=== PATIENT | female | born 1995 | race Caucasian/White ===

== ENCOUNTER 2020-08-05 15:00 | Outpatient (CLI) | payer OTHER ==
[2020-08-05 15:39] LABS: Glucose,Whole Blood 100 mg/dL (75-99)
[2020-08-05 16:16] VITALS: BP 129/76; PULSE 129; RESP 18; TEMP 97.7
--- NOTE | 2020-08-17 07:48 | P.MSEPDOC ---
Presenting Problems - Arrival Data Date of Arrival on Unit: 08/05/20 Time of Arrival on Unit: 14:15 Mode of Transport: Ambulatory - Complaint OB-Reason for Admission/Chief Complaint: Dizziness Comment: cramping, lightheaded, hot, on macrobid for UTI with neg culture Medical History - Information : 1 Para: 0 Term: 0 : 0 Abortions: Spontaneous or Elective: 0 Number of Living Children: 0 - Gestational Age Gestational Age by ANDREW (wks/days): 34 Weeks and 5 Days Review of Systems - Review of Systems Constitutional: No problems Breast: No problems ENT: No problems Cardiovascular: No problems Respiratory: No problems Gastrointestinal: No problems Genitourinary: No problems Musculoskeletal: No problems Neurological: No problems Skin: No problems Vital Signs - Temperature Temperature: 97.7 F Temperature Source: Temporal Artery Scan - Pulse Right Sitting Brachial Pulse Rate: 129 Pulse Assessment Method: Automatic Cuff - Respirations Respiratory Rate: 18 Oxygen Delivery Method: Room Air O2 Sat by Pulse Oximetry: 97 - Blood Pressure Right Arm Sitting Blood Pressure: 129/76 Blood Pressure Mean: 93 Blood Pressure Source: Automatic Cuff Medical Screen Scoring (Pre) - Cervical Exam Dilation: Exam Deferred Effacement: Exam Deferred - Uterine Contractions Frequency: N/A Duration: N/A Intensity: N/A - Maternal Vital Signs Maternal Temperature: N/A Maternal Blood Pressure: N/A Signs of Preeclampsia: N/A Maternal Respirations: N/A - Maternal Trauma Maternal Trauma: N/A - Assessment - Baby A Baseline FHR: 125 Heart Rate - NICHD Category: Category I (Normal) = 0 NST: Reactive Position: N/A Station: N/A - Total Score - Baby A Total Score - Baby A: 0 - Total Score - Baby B Total Score - Baby B: 0 - Total Score - Baby C Total Score - Baby C: 0 - Level of Risk - Baby A Level of Risk - Baby A: Low (0-5) - Level of Risk - Baby B Level of Risk - Baby B: Low (0-5) - Level of Risk - Baby C Level of Risk - Baby C: Low (0-5) Physician Notification (Pre) - Physician Notified Physician Notified Date: 08/05/20 Physician Notified Time: 16:00 New Order Received: Yes - Notification Comment Comment: ok to dc home, rest and increase po fluids. Pt to call for appt tomorrow with Dr Ojeda if symptoms persist. Disposition - Disposition OB Disposition: Physician follow up in office, Discharge to home Discharge Date: 08/05/20 Discharge Time: 16:04 I agree with the RN Medical Screening Exam: Yes Case reviewed; plan agreed upon as documented in EMR&OBIX.: Yes Comments: Patient was neither seen nor examined by me Diagnosis: FALSE LABOR BEFORE 37 COMPLETED WEEKS OF GEST, THIRD TRI
== END 2020-08-05 16:07 | disposition home or self-care (01) ==
LOC: FBPOP 15:00
PROVIDERS: ATTEND Obstetrics & Gynecology
DX: O47.03 False labor before 37 completed weeks of gestation, third trimester (principal); Z3A.34 34 weeks gestation of pregnancy
CPT/HCPCS: 59025; G0463; 99213

== ENCOUNTER 2020-08-09 06:30 | Outpatient (CLI) | payer OTHER ==
[2020-08-09 07:34] VITALS: BP 121/79; PULSE 93; RESP 16; TEMP 97.9
--- NOTE | 2020-08-17 07:51 | P.MSEPDOC ---
Presenting Problems - Arrival Data Date of Arrival on Unit: 08/09/20 Time of Arrival on Unit: 06:30 Mode of Transport: Ambulatory - Complaint OB-Reason for Admission/Chief Complaint: Decreased Movement Medical History - Information : 1 Para: 0 Term: 0 : 0 Abortions: Spontaneous or Elective: 0 Number of Living Children: 0 - Gestational Age Gestational Age by ANDREW (wks/days): 35 Weeks and 2 Days Review of Systems - Review of Systems Constitutional: No problems Breast: No problems ENT: No problems Cardiovascular: No problems Respiratory: No problems Gastrointestinal: No problems Genitourinary: No problems Musculoskeletal: No problems Neurological: No problems Skin: No problems Vital Signs - Temperature Temperature: 97.9 F Temperature Source: Oral - Pulse Pulse Oximetery Pulse Rate: 93 Pulse Assessment Method: Pulse Oximetry - Respirations Respiratory Rate: 16 Oxygen Delivery Method: Room Air O2 Sat by Pulse Oximetry: 100 - Blood Pressure Right Arm Blood Pressure: 121/79 Blood Pressure Mean: 93 Blood Pressure Source: Automatic Cuff Medical Screen Scoring (Pre) - Cervical Exam Dilation: Exam Deferred Effacement: Exam Deferred Membranes: Intact - Uterine Contractions Frequency: N/A Duration: N/A Intensity: N/A - Maternal Vital Signs Maternal Temperature: N/A Maternal Blood Pressure: N/A Signs of Preeclampsia: N/A Maternal Respirations: N/A - Maternal Trauma Maternal Trauma: N/A - Assessment - Baby A Baseline FHR: 135 Heart Rate - NICHD Category: Category I (Normal) = 0 NST: Reactive Position: N/A Station: N/A - Total Score - Baby A Total Score - Baby A: 0 - Total Score - Baby B Total Score - Baby B: 0 - Total Score - Baby C Total Score - Baby C: 0 - Level of Risk - Baby A Level of Risk - Baby A: Low (0-5) - Level of Risk - Baby B Level of Risk - Baby B: Low (0-5) - Level of Risk - Baby C Level of Risk - Baby C: Low (0-5) Physician Notification (Pre) - Physician Notified Physician Notified Date: 08/09/20 Physician Notified Time: 07:27 New Order Received: Yes - Notification Comment Comment: Report given to Dr. Ojeda on pt and status, reactive NST, pt feeling. movement now. Pt has an appointment tomorrow with dr. ojeda. Orders to discharge. pt home. Medical Screen Scoring (Post) - Cervical Exam Dilation: Exam Deferred Effacement: Exam Deferred Membranes: Intact - Uterine Contractions Frequency: N/A Duration: N/A Intensity: N/A - Maternal Vital Signs Maternal Temperature: N/A Maternal Blood Pressure: N/A Signs of Preeclampsia: N/A Maternal Respirations: N/A - Pain Assessment Pain Location and Character: Generalized Pain Scale Used: Numeric (1 - 10) Pain Intensity: 0 Pain Management Goal: 0 Pain Behavior: None Exhibited, Vocalization - Maternal Trauma Maternal Trauma: N/A - Assessment - Baby A Heart Rate: 130 Heart Rate - NICHD Category: Category I (Normal) = 0 NST: Reactive Position: N/A Station: N/A - Total Score Total Score - Baby A: 0 Total Score - Baby B: 0 Total Score - Baby C: 0 - Post Treatment Level of Risk Post Treatment Level of Risk - Baby A: Low (0-5) Post Treatment Level of Risk - Baby B: Low (0-5) Post Treatment Level of Risk - Baby C: Low (0-5) Physician Notification (Post) - Physician Notified Physician Notified Date: 08/09/20 Physician Notified Time: 07:24 Physician/Practitioner Notified:: Lynette Spoke With: Lynette New Order Received: (home) Disposition - Disposition OB Disposition: Physician follow up in office, Discharge to home Discharge Date: 08/09/20 Discharge Time: 07:33 I agree with the RN Medical Screening Exam: Yes Case reviewed; plan agreed upon as documented in EMR&OBIX.: Yes Comments: Patient is neither seen nor examined by me Diagnosis: DECREASED MOVEMENTS, THIRD TRIMESTER, FETUS 1
== END 2020-08-09 07:26 | disposition home or self-care (01) ==
LOC: FBPOP 06:30
PROVIDERS: ATTEND Obstetrics & Gynecology
DX: O36.8131 Decreased fetal movements, third trimester, fetus 1 (principal); Z3A.35 35 weeks gestation of pregnancy
CPT/HCPCS: 59025; 99213

== ENCOUNTER 2020-09-09 20:55 | Outpatient (CLI) | payer OTHER ==
[2020-09-09 21:31] LABS: Glucose,Whole Blood 78 mg/dL (75-99)
[2020-09-09 22:27] VITALS: BP 147/95; PULSE 97; RESP 16; TEMP 97.6
--- NOTE | 2020-09-15 09:46 | P.MSEPDOC ---
Presenting Problems - Arrival Data Date of Arrival on Unit: 09/09/20 Time of Arrival on Unit: 21:00 Mode of Transport: Ambulatory - Complaint OB-Reason for Admission/Chief Complaint: Dizziness, Other Comment: Patient presents to triage stating she had elevated blood pressure at home and has been feeling an increase in dizziness. Medical History - Information : 1 Para: 0 Term: 0 : 0 Abortions: Spontaneous or Elective: 0 Number of Living Children: 0 - Gestational Age Gestational Age by ANDREW (wks/days): 39 Weeks and 5 Days Review of Systems - Review of Systems Constitutional: No problems Breast: No problems ENT: No problems Cardiovascular: No problems Respiratory: No problems Gastrointestinal: No problems Genitourinary: No problems Musculoskeletal: No problems Neurological: No problems Skin: No problems Vital Signs - Temperature Temperature: 97.6 F Temperature Source: Temporal Artery Scan - Pulse Left Brachial Pulse Rate: 97 Pulse Assessment Method: Automatic Cuff - Respirations Respiratory Rate: 16 Oxygen Delivery Method: Room Air - Blood Pressure Left Arm Blood Pressure: 147/95 Blood Pressure Mean: 112 Blood Pressure Source: Automatic Cuff Medical Screen Scoring - Cervical Exam Dilation (cm): 1 Effacement (%): 50 Station: -3 Membranes: Intact - Uterine Contractions Frequency From (mins): 0 Frequency To (mins): 0 Duration From (seconds): 0 Duration To (seconds): 0 Intensity: Absent Resting: Soft to palpation - Assessment - Baby A Baseline FHR: 145 Heart Rate - NICHD Category: Category I (Normal) NST: Reactive Physician Notification - Physician Notified Physician Notified Date: 09/09/20 Physician Notified Time: 22:25 Physician: Dr. Ojeda New Order Received: Yes - Notification Comment Comment: Discharge home if blood pressures remain within normal limits. Maternal Triage Index - Maternal Triage Index Presenting for scheduled procedure w/no complaint: No - Stat/Priority 1 Stat Priority 1: No - Urgent/Priority 2 Urgent Priority 2: No - Prompt/Priority 3 Prompt Priority 3: Yes Criteria Met for Priority 3: Dr. Ojeda notified at 0650. priority 3 related to blood pressures. Disposition - Disposition OB Disposition: Discharge to home Discharge Date: 09/09/20 Discharge Time: 22:00 I agree with the RN Medical Screening Exam: Yes Case reviewed; plan agreed upon as documented in EMR&OBIX.: Yes Comments: Patient was neither seen nor examined by me. Diagnosis: RELATED CONDITIONS, UNSPECIFIED, THIRD TRIMESTER
== END 2020-09-09 22:00 ==
LOC: FBPOP 20:55
PROVIDERS: ATTEND Obstetrics & Gynecology
DX: O26.893 Other specified pregnancy related conditions, third trimester (principal); R42 Dizziness and giddiness; Z3A.39 39 weeks gestation of pregnancy
CPT/HCPCS: 59025; 99213

== ENCOUNTER 2020-09-17 | Inpatient (IN) | payer OTHER | END 2020-09-21 13:30 | disposition home or self-care (01) | DRG 788 | PROVIDERS: ADMIT Obstetrics & Gynecology Obstetrics | PROC: 10D00Z1 Extraction of Products of Conception, Low, Open Approach (ICD-10-PCS; principal; 2020-09-17) | DX: O14.04 Mild to moderate pre-eclampsia, complicating childbirth (principal); O15.1 Eclampsia complicating labor; F41.9 Anxiety disorder, unspecified; O48.0 Post-term pregnancy; Z37.0 Single live birth; Z3A.40 40 weeks gestation of pregnancy; Z91.410 Personal history of adult physical and sexual abuse | CPT/HCPCS: 81001; 82565; 82570; 83615; 83735; 84156; 84450; 84460; 84520; 84550; 85025; 85384; 85610; 85730; 86850; 86900; 86901; 88307; 90471; 90707 ==

== ENCOUNTER 2020-09-23 16:13 | Observation (INO) | payer OTHER ==
[2020-09-23] MEDS ORDERED: hydrALAZINE HCL 20 MG/ML 1 ML VIAL IVP PRN ×2 (16:33)
[2020-09-23 16:57] LABS: Basophils # (A) 0.1 k/uL (0-0.2); Basophils % (A) 1 %; Eosinophils # (A) 0.3 k/uL (0-0.7); Eosinophils % (A) 3 %; HCT 31.9 % (34.0-46.0); HGB 10.8 gm/dL (11.4-16.0); Lymphocytes # (A) 1.5 k/uL (1.0-4.8); Lymphocytes % (A) 18 %; MCH 27.4 pg (25.0-35.0); MCHC 33.9 g/dL (31.0-37.0); Mean Platelet Volume 7.9; Monocytes # (A) 0.5 k/uL (0-1.0); Monocytes % (A) 5 %; Neutrophils # (A) 6.3 k/uL (1.3-7.7); Neutrophils % (A) 72 %; Platelet Count 246 k/uL (150-450); RBC 3.94 m/uL (3.80-5.40); RDW 14.1 % (11.5-15.5); WBC 8.7 k/uL (3.8-10.6)
[2020-09-23 17:04] LABS: Uric Acid 5.6 mg/dL (3.7-7.4)
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
[2020-09-23] MEDS ORDERED: LACTATED RINGERS 1,000 ML IV SCH (18:00)
[2020-09-23 18:13] VITALS: RESP 16
[2020-09-23] MEDS: IBUPROFEN 600 MG TAB PO SCH ×2 (18:37→23:19)
[2020-09-23] MEDS: ACETAMINOPHEN TAB 500 MG TAB PO PRN (20:15)
[2020-09-23] MEDS ORDERED: NIFEdipine XL 30 MG TAB.ER.24 PO STA ×2 (20:45→23:20)
[2020-09-23] MEDS ORDERED: FUROSEMIDE 10 MG/ML 4 ML VIAL IV STA (20:45)
[2020-09-23] MEDS: LABETALOL 100 MG TAB PO SCH (21:09)
--- NOTE | 2020-09-23 23:54 | P.CONS ---
History of Present Illness - Reason for Consult Consult date: 09/23/20 hypertension Requesting physician: Charmaine Ojeda - Chief Complaint elevated blood pressure - History of Present Illness 24 year old female with no significant past medical history patient is 6 days post op. when she was discovered to have elevated blood press ure around delivery, she did not have any seizures at the time ,blood pressure was controlled and discharged however, she was monitoring her blood pressure at home, and decided to come back when she noticed that her BP is poorly controlled, she reports some mild headache, and heavy breathing but denies any focal neuro deficits, nausea , vomiting, abd pain , chest pain , blurry vision. she does have moderate pedal edema she is currently on labetalol which has been adjusted, and IV hydralazine has been given as her systolic blood pressure was around 190 Review of Systems Pertinent positives as noted in HPI. All other systems were reviewed and are negative Past Medical History Past Medical History: Asthma History of Any Multi-Drug Resistant Organisms: None Reported Past Surgical History: Appendectomy Past Anesthesia/Blood Transfusion Reactions: No Reported Reaction Smoking Status: Never smoker - Past Family History Father Family Medical History: No Reported History Medications and Allergies Home Medications Medication Instructions Recorded Confirmed Type Labetalol [Trandate] 200 mg PO TID 09/23/20 09/23/20 History Allergies Allergy/AdvReac Type Severity Reaction Status Date / Time No Known Allergies Allergy Verified 09/23/20 16:28 Physical Exam Vitals: Vital Signs Temp Pulse Resp BP 09/23/20 18:45 156/87 09/23/20 18:01 97.3 F L 72 16 190/101 09/23/20 17:18 90 159/84 09/23/20 17:03 62 166/93 09/23/20 16:56 164/87 09/23/20 16:45 185/98 09/23/20 16:18 190/101 Intake and Output 09/23/20 09/23/20 09/23/20 06:59 14:59 22:59 Other: Weight 93.44 kg Constitutional: No acute distress, conversant, pleasant Eyes: Anicteric sclerae, moist conjunctiva, Pupils equal round reactive to light ENMT: NC/AT Oropharynx clear, no erythema, or exudates Neck: Supple, FROM, no masses, or JVD No carotid bruits No thyromegaly Lungs: Clear to auscultation Clear to percussion Normal respiratory effort, no accessory muscle use Cardiovascular: Heart regular in rate and rhythm, No murmurs, gallops, or rubs bilateral pedal edema Abdominal: Soft, surgical wound clean dry and intact no surrounding erythema or induration Nontender, no guarding, rebound or rigidity Abdomen moving with respiration Normoactive bowel sounds No hepatomegaly, No splenomegaly No palpable mass No abdominal wall hernia noted Skin: Normal temperature, tone, texture, turgor No induration No subcutaneous nodules No rash, lesions No ulcers Extremities: No digital cyanosis No clubbing Pedal edema bilaterally, capillary refill immediate Radial pulses intact and symmetrical No calf tenderness Psychiatric: Alert and oriented to person, place and time Appropriate affect fair judgement Neuro Muscles Strength 5/5 in all 4 extremities Sensation to light touch grossly present throughout Cranial nerves II-XII grossly intact No focal sensory deficits Lymphatics: no palpable cervical or supraclavicular , or inguinal lymph nodes Results CBC & Chem 7: 09/23/20 16:50 09/23/20 16:50 Labs: Abnormal Lab Results - Last 24 Hours (Table) 09/23/20 09/23/20 Range/Units 16:50 16:50 Hgb 10.8 L (11.4-16.0) gm/dL Hct 31.9 L (34.0-46.0) % AST 47 H (14-36) U/L Assessment and Plan Assessment: Post hypertension poorly controlled Continue with labetalol 300 twice a day Procardia with adjust dosing as needed (30 mg now and will repeat dose if needed in 2 hours) , goal blood pressure less than 140/90 One-time Lasix 40 mg IV will help with her blood pressure and edema Monitor vital signs closely Repeat labs in the morning renal function and liver function Case discussed with OB consider adding hydralazine 10 mg 4 times a day if blood pressure continues to be elevated despite above measures Continue close monitoring of blood pressure over the coming 2-3 months until controlled patient could be controlled off medication at that point as she doesn't have any history of hypertension in the past . Management per OB anemia of management per OB DVT prophylaxis and pain control per OB Thank you for allowing us to participate in the care of this patient. Do not hesitate to contact us with questions. Someone can be reached from the [facility] hospitalist group at all hours of the day at [phone].
[2020-09-24] MEDS ORDERED: IPRATROPIUM-ALBUTEROL 3 ML NEB INHALATION PRN (00:25)
[2020-09-24] MEDS: ACETAMINOPHEN TAB 500 MG TAB PO PRN ×2 (05:13→10:15)
[2020-09-24 06:27] LABS: Basophils # (A) 0.1 k/uL (0-0.2); Basophils % (A) 1 %; Eosinophils # (A) 0.1 k/uL (0-0.7); Eosinophils % (A) 2 %; HCT 34.6 % (34.0-46.0); HGB 11.8 gm/dL (11.4-16.0); Lymphocytes # (A) 1.6 k/uL (1.0-4.8); Lymphocytes % (A) 17 %; MCH 27.5 pg (25.0-35.0); MCHC 34.3 g/dL (31.0-37.0); MCV 80.3 fL (80.0-100.0); Mean Platelet Volume 7.7; Monocytes # (A) 0.5 k/uL (0-1.0); Monocytes % (A) 6 %; Neutrophils # (A) 6.8 k/uL (1.3-7.7); Neutrophils % (A) 74 %; Platelet Count 275 k/uL (150-450); WBC 9.1 k/uL (3.8-10.6)
[2020-09-24 06:33] LABS: ALT 32 U/L (4-34); AST 51 U/L (14-36); African American GFR (CKD) >90 (>60 ml/min/1.73 sqM); Albumin 3.9 g/dL (3.5-5.0); Alkaline Phosphatase 164 U/L (38-126); Anion Gap 10 mmol/L; Blood Urea Nitrogen 14 mg/dL (7-17); Calcium 9.2 mg/dL (8.4-10.2); Carbon Dioxide 25 mmol/L (22-30); Chloride 106 mmol/L (98-107); Glucose 86 mg/dL (74-99); LDH 974 U/L (313-618); Non-African American GFR(CKD) >90 (>60 ml/min/1.73 sqM); Potassium 3.3 mmol/L (3.5-5.1); Sodium 141 mmol/L (137-145); Total Bilirubin 0.6 mg/dL (0.2-1.3); Total Protein 6.8 g/dL (6.3-8.2)
[2020-09-24 07:34] VITALS: TEMP 98.3
[2020-09-24] MEDS: IBUPROFEN 600 MG TAB PO SCH (07:37)
--- NOTE | 2020-09-24 07:59 | P.DS ---
Providers Date of admission: 09/23/20 17:28 Expected date of discharge: 09/24/20 Attending physician: Charmaine Ojeda Primary care physician: Stated None Hospital Course: This is a 24-year-old white female 1 para 0 status post section for postdates and preeclampsia. She was discharged home on 09/21/2020 with stable blood pressures, 130s to 140s over 70s. Patient re-presented with a elevated blood pressure at home, 180s over 100s. She was indeed noted to be hypertensive on admission. Patient had been discharged on Procardia 200 mg 3 times a day which she had taken 1 hour prior to admission. Labs were esse ntially within normal limits. Patient did have 2+ peripheral edema. Medicine consultation was sought and performed. Patient's blood pressure stabilized through the night after receiving hydralazine 2. She also received Procardia 30 mg 2 in addition to a change of the labetalol, 300 mg twice a day. She diuresed 4300 mL of fluid after 40 mg of Lasix was given IV push. This morning she feels and looks greatly improved. Patient denies headache, right upper quadrant pain or visual changes. She has no edema this morning, normal reflexes at +1 bilaterally, and no clonus. Her incision is clean and dry, intact, Steri-Strips applied. Fundus is firm, midline, symmetric, nontender, minimal lochia rubra. Patient is not breast- feeding. We will await medicine consult this morning, but my plan is for discharge home later today. She will continue labetalol 300 mg twice a day and we have added Procardia XL 60 mg once in the morning. She'll follow-up with me in the office in 1 week. She will continue taking blood pressures at home and call with any systolic greater than 140, or diastolic greater than 90. She will call with any fevers shakes or chills, incisional issues, right upper quadrant pain, visual changes, or headache not alleviated by 2 Tylenol. Patient Condition at Discharge: Good Plan - Discharge Summary Discharge Rx Participant: No New Discharge Prescriptions: No Action Labetalol [Trandate] 200 mg PO TID Discharge Medication List Labetalol [Trandate] 200 mg PO TID 09/23/20 [History] Follow up Appointment(s)/Referral(s): Charmaine Ojeda MD [STAFF PHYSICIAN] - 1 Week Discharge Disposition: HOME SELF-CARE
[2020-09-24] MEDS: LABETALOL 100 MG TAB PO SCH (08:45)
[2020-09-24] MEDS ORDERED: PRENATAL VIT-IRON-FOLIC ACID 1 EACH CAP PO SCH (09:00)
[2020-09-24 09:34] VITALS: BP 110/71; PULSE 80
--- NOTE | 2020-09-25 08:43 | P.MSEPDOC ---
Presenting Problems - Arrival Data Date of Arrival on Unit: 09/23/20 Time of Arrival on Unit: 16:13 Mode of Transport: Ambulatory - Complaint OB-Reason for Admission/Chief Complaint: PIH Comment: blood pressure and lab eval Medical History - Information : 1 Para: 1 Term: 1 Number of Living Children: 1 - Gestational Age Gestational Age by ANDREW (wks/days): 41 Weeks and 3 Days Review of Systems - Review of Systems Constitutional: No problems Breast: No problems ENT: No problems Cardiovascular: No problems Respiratory: No problems Gastrointestinal: No problems Genitourinary: No problems Musculoskeletal: No problems Neurological: No problems Skin: No problems Vital Signs - Temperature Temperature: 98.3 F Temperature Source: Oral - Pulse Right Sitting Brachial Pulse Rate: 80 Pulse Assessment Method: Automatic Cuff - Respirations Respiratory Rate: 16 Oxygen Delivery Method: Room Air O2 Sat by Pulse Oximetry: 98 - Blood Pressure Right Arm Sitting Blood Pressure: 110/71 Blood Pressure Mean: 84 Blood Pressure Source: Automatic Cuff Physician Notification - Physician Notified Physician Notified Date: 09/23/20 Physician Notified Time: 16:23 Physician: Charmaine Ojeda New Order Received: Yes - Notification Comment Comment: [facility] NEW CONSULT [phone] From: Cordelia Condon RE: Autumn Mcgrath 1995 Patient Location: 4FBP RM: ST18-1 Referring Physician: Dr Ojeda Dr Ojeda called in and would like her patient to be seen STAT. She is very concerned about the patients blood pressures that continue to increase. Her most recent vitals were 161/99 pulse: 80 temp: 98.8 at 1940. Pt c/o of a headache at this time. Pt received Hydralazine 5mg at 1644, Hydralazine 10mg at 1707, Labetalol 200mg at 1500 (at home). Her current order has now been changed to 300mg BID. Read 8:01 PM Maternal Triage Index - Maternal Triage Index Presenting for scheduled procedure w/no complaint: No - Stat/Priority 1 Stat Priority 1: Yes Provider Notified: Charmaine Ojeda Provider Notified Time: 16:23 Criteria Met for Priority 1: BP 190/101 and 176/105; day 6. Disposition - Disposition OB Disposition: Triage Discharge Date: 09/24/20 Discharge Time: 10:22 I agree with the RN Medical Screening Exam: Yes Case reviewed; plan agreed upon as documented in EMR&OBIX.: Yes Diagnosis: )75.89
== END 2020-09-24 10:23 | disposition home or self-care (01) ==
LOC: FBPOP 16:13 → 4FBP 17:28
PROVIDERS: ADMIT Obstetrics & Gynecology; ATTEND Obstetrics & Gynecology
DX: O14.95 Unspecified pre-eclampsia, complicating the puerperium (principal); O90.81 Anemia of the puerperium; R74.01 Elevation of levels of liver transaminase levels; J45.909 Unspecified asthma, uncomplicated; Z98.891 History of uterine scar from previous surgery; Z91.410 Personal history of adult physical and sexual abuse; Z90.49 Acquired absence of other specified parts of digestive tract; Z79.899 Other long term (current) drug therapy
CPT/HCPCS: 99215; 96374; 96375; 80053; 83615; 84450; 84460; 84520; 84550 ×2; 85025 ×2; G0378 ×2; J0360; J1940; S0197

== ENCOUNTER 2021-06-20 15:50 | Emergency (ER) | payer OTHER ==
[2021-06-20 15:59] VITALS: TEMP 97.9
[2021-06-20] MEDS ORDERED: ASPIRIN 81 MG PO STA (16:34)
--- NOTE | 2021-06-20 16:40 | ED ---
General Adult HPI - General Chief complaint: Chest Pain Stated complaint: Chest Pain/Tightness Time Seen by Provider: 06/20/21 16:03 Source: patient, RN notes reviewed Mode of arrival: ambulatory Limitations: no limitations - History of Present Illness Initial comments: 25-year-old female presents to the emergency department for evaluation of midsternal chest tightness that has been ongoing for the past 4 days. States nothings makes her discomfort better or worse, though does have some accompanying mild dizziness and shortness of breath. Has not taken anything prior to arrival to treat her symptoms. Denies any known sick contacts, fever, chills, headache, cough, congestion, abdominal pain, nausea, vomiting, appetite changes, diarrhea, dysuria, or hematuria. - Related Data Home Medications Medication Instructions Recorded Confirmed Cetirizine HCl [Zyrtec] 10 mg PO DAILY 06/20/21 06/20/21 Escitalopram Oxalate [Lexapro] 20 mg PO DAILY 06/20/21 06/20/21 Previous Rx's Medication Instructions Recorded Ibuprofen [Motrin] 600 mg PO Q8HR PRN #20 tab 06/20/21 Allergies Allergy/AdvReac Type Severity Reaction Status Date / Time No Known Allergies Allergy Verified 06/20/21 18:10 Review of Systems ROS Statement: Those systems with pertinent positive or pertinent negative responses have been documented in the HPI. ROS Other: All systems not noted in ROS Statement are negative. Past Medical History Past Medical History: Asthma History of Any Multi-Drug Resistant Organisms: None Reported Past Surgical History: Appendectomy, Section Past Anesthesia/Blood Transfusion Reactions: No Reported Reaction Past Psychological History: Anxiety Smoking Status: Never smoker Past Alcohol Use History: None Reported Past Drug Use History: None Reported - Past Family History Father Family Medical History: No Reported History General Exam Limitations: no limitations (Well-developed, well-nourished female in no acute distress. Initial temperature 97.9, pulse 101, recheck 91, respirations 19, blood pressure 141/97, recheck 116/79, pulse ox 98% on room air.) General appearance: alert, in no apparent distress Eye exam: Present: normal appearance, PERRL, EOMI. Absent: scleral icterus, conjunctival injection, periorbital swelling Respiratory exam: Present: normal lung sounds bilaterally. Absent: respiratory distress, wheezes, rales, rhonchi, stridor Cardiovascular Exam: Present: regular rate, normal rhythm, normal heart sounds. Absent: systolic murmur, diastolic murmur, rubs, gallop, clicks GI/Abdominal exam: Present: soft, normal bowel sounds. Absent: distended, tenderness, guarding, rebound, rigid Neurological exam: Present: alert, oriented X3, CN II-XII intact Psychiatric exam: Present: normal affect, normal mood Course Vital Signs 06/20/21 06/20/21 06/20/21 15:56 16:53 19:00 Temperature 97.9 F Pulse Rate 101 H 88 89 Respiratory 19 16 16 Rate Blood Pressure 141/97 119/82 113/70 O2 Sat by Pulse 98 97 97 Oximetry - Reevaluation(s) Reevaluation #1: 06/20/21 17:35 Patient resting comfortably at this time. She is pain-free with no shortness of breath or difficulty breathing. She is updated on results. Explained that the elevated D-Dimer can be concerning for PE and framed within context of ongoing chest tightness would merit a CTA. Patient is agreeable with this POC. 06/20/21 18:30 Patient updated on results including mass suspected to be a fibroadenoma in the right breast. Discussed appropriate follow up care. Also spoke with patient abo ut the results of her work up including the likelihood that her discomfort is probably musculoskeletal in nature as cardiac and pulmonary causes were thoroughly addressed. Patient will be discharged home with Motrin and follow up instructions. She verbalizes understanding. Medical Decision Making - Medical Decision Making 25-year-old female with a past medical history diarrhea of asthma and anxiety presents to the emergency department for evaluation of diffuse upper chest tightness 4 days. Upon exam, patient is well-appearing and in no acute distress. Vital signs are stable. Patient's physical exam findings are unremarkable. Lung sounds are clear to auscultation and heart rate was regular. Chest discomfort was not reproducible with palpation, though somewhat exacerbated by movement of the upper extremities. EKG shows normal sinus rhythm. Chest x-ray is negative. Laboratory studies were obtained and patient does have an elevated d-dimer (0.73) therefore CT angio of the chest was done which was negative for PE. Incidental finding of right breast mass suspected to be a fibroadenoma was discussed with patient. Encouraged to follow up with PCP or OB-Gynecological Assistant for further evaluation and treatment specific to this finding. Discus sed likelihood of chest discomfort being musculoskeletal in nature as cardiac and pulmonary workups were negative. Patient was given an aspirin will present to the emergency department and will be discharged home with Motrin for discomfort. Encouraged to take this medication twice daily for the next 3 days. Return parameters were discussed in detail. Patient verbalizes understanding and agrees with this plan. Attending: Darlin. - Lab Data Result diagrams: 06/20/21 16:45 06/20/21 16:45 Lab Results 06/20/21 06/20/21 06/20/21 Range/Units 16:45 16:45 16:45 WBC 9.2 (3.8-10.6) k/uL RBC 5.25 (3.80-5.40) m/uL Hgb 14.1 (11.4-16.0) gm/dL Hct 44.1 (34.0-46.0) % MCV 84.0 (80.0-100.0) fL MCH 26.8 (25.0-35.0) pg MCHC 31.9 (31.0-37.0) g/dL RDW 13.2 (11.5-15.5) % Plt Count 284 (150-450) k/uL MPV 7.6 Neutrophils % 64 % Lymphocytes % 27 % Monocytes % 5 % Eosinophils % 3 % Basophils % 1 % Neutrophils # 5.8 (1.3-7.7) k/uL Lymphocytes # 2.4 (1.0-4.8) k/uL Monocytes # 0.5 (0-1.0) k/uL Eosinophils # 0.2 (0-0.7) k/uL Basophils # 0.1 (0-0.2) k/uL PT (9.0-12.0) sec INR (<1.2) APTT (22.0-30.0) sec D-Dimer (<0.60) mg/L FEU Sodium 136 L (137-145) mmol/L Potassium 4.0 (3.5-5.1) mmol/L Chloride 105 (98-107) mmol/L Carbon Dioxide 22 (22-30) mmol/L Anion Gap 9 mmol/L BUN 13 (7-17) mg/dL Creatinine 0.85 (0.52-1.04) mg/dL Est GFR (CKD-EPI)AfAm >90 (>60 ml/min/1.73 sqM) Est GFR (CKD-EPI)NonAf >90 (>60 ml/min/1.73 sqM) Glucose 89 (74-99) mg/dL Calcium 9.1 (8.4-10.2) mg/dL Magnesium 1.6 (1.6-2.3) mg/dL Total Bilirubin 0.4 (0.2-1.3) mg/dL AST 29 (14-36) U/L ALT 22 (4-34) U/L Alkaline Phosphatase 92 (38-126) U/L Troponin I (0.000-0.034) ng/mL Total Protein 7.3 (6.3-8.2) g/dL Albumin 3.9 (3.5-5.0) g/dL Urine Color Light Yellow Urine Appearance Cloudy H (Clear) Urine pH 6.5 (5.0-8.0) Ur Specific [place] 1.011 (1.001-1.035) Urine Protein Negative (Negative) Urine Glucose (UA) Negative (Negative) Urine Ketones Negative (Negative) Urine Blood Negative (Negative) Urine Nitrite Negative (Negative) Urine Bilirubin Negative (Negative) Urine Urobilinogen <2.0 (<2.0) mg/dL Ur Leukocyte Esterase Moderate H (Negative) Urine RBC 1 (0-5) /hpf Urine WBC 3 (0-5) /hpf Ur Squamous Epith Cells 4 (0-4) /hpf Urine Mucus Rare H (None) /hpf Urine HCG, Qual (Not Detectd) 06/20/21 06/20/21 06/20/21 Range/Units 16:45 16:45 17:00 WBC (3.8-10.6) k/uL RBC (3.80-5.40) m/uL Hgb (11.4-16.0) gm/dL Hct (34.0-46.0) % MCV (80.0-100.0) fL MCH (25.0-35.0) pg MCHC (31.0-37.0) g/dL RDW (11.5-15.5) % Plt Count (150-450) k/uL MPV Neutrophils % % Lymphocytes % % Monocytes % % Eosinophils % % Basophils % % Neutrophils # (1.3-7.7) k/uL Lymphocytes # (1.0-4.8) k/uL Monocytes # (0-1.0) k/uL Eosinophils # (0-0.7) k/uL Basophils # (0-0.2) k/uL PT 10.4 (9.0-12.0) sec INR 0.9 (<1.2) APTT 27.0 (22.0-30.0) sec D-Dimer 0.73 H (<0.60) mg/L FEU Sodium (137-145) mmol/L Potassium (3.5-5.1) mmol/L Chloride (98-107) mmol/L Carbon Dioxide (22-30) mmol/L Anion Gap mmol/L BUN (7-17) mg/dL Creatinine (0.52-1.04) mg/dL Est GFR (CKD-EPI)AfAm (>60 ml/min/1.73 sqM) Est GFR (CKD-EPI)NonAf (>60 ml/min/1.73 sqM) Glucose (74-99) mg/dL Calcium (8.4-10.2) mg/dL Magnesium (1.6-2.3) mg/dL Total Bilirubin (0.2-1.3) mg/dL AST (14-36) U/L ALT (4-34) U/L Alkaline Phosphatase (38-126) U/L Troponin I <0.012 (0.000-0.034) ng/mL Total Protein (6.3-8.2) g/dL Albumin (3.5-5.0) g/dL Urine Color Urine Appearance (Clear) Urine pH (5.0-8.0) Ur Specific [place] (1.001-1.035) Urine Protein (Negative) Urine Glucose (UA) (Negative) Urine Ketones (Negative) Urine Blood (Negative) Urine Nitrite (Negative) Urine Bilirubin (Negative) Urine Urobilinogen (<2.0) mg/dL Ur Leukocyte Esterase (Negative) Urine RBC (0-5) /hpf Urine WBC (0-5) /hpf Ur Squamous Epith Cells (0-4) /hpf Urine Mucus (None) /hpf Urine HCG, Qual Not Detected (Not Detectd) - EKG Data EKG shows normal: sinus rhythm Rate: normal EKG Comments: EKG obtained at 1614 shows sinus tachycardia with nonspecific T-wave abnormality. Ventricular rate 105, AL interval 146, QRS duration 96, QT/QTC 290/351. Interpretation abnormal rhythm ECG. - Radiology Data Radiology results: report reviewed, image reviewed Two-view chest x-ray was obtained. Report was reviewed in its entirety. Impression per Dr. Almaraz is normal chest. CTA of the chest was obtained. Report was reviewed in its entirety. Impression per Dr. Almaraz is no evidence of pulmonary embolism. Right breast mass. This could be fibroadenoma in this relatively young patient. Disposition Clinical Impression: Chest pain, non-cardiac Disposition: HOME SELF-CARE Condition: Stable Instructions (If sedation given, give patient instructions): Noncardiac Chest Pain (ED) Additional Instructions: Please call your PCP or OB-Gynecological Assistant to schedule follow up appointment. Explain that a mass, suspected to be a fibroadenoma, was found in the right breast and that you are needing further evaluation and treatment. Take Motrin twice daily for the next three days for musculoskeletal chest pain. Continue taking your home medications as prescribed. Follow up with your PCP for a recheck. Return to the emergency department with any new, worsening, or concerning symptoms. Prescriptions: Ibuprofen [Motrin] 600 mg PO Q8HR PRN #20 tab PRN Reason: Pain Is patient prescribed a controlled substance at d/c from ED?: No Referrals: Shirin Sheppard NPC [Family Provider] - 1-2 days Time of Disposition: 19:38
[2021-06-20 16:54] VITALS: RESP 16
[2021-06-20 16:56] LABS: Basophils # (A) 0.1 k/uL (0-0.2); Basophils % (A) 1 %; Eosinophils # (A) 0.2 k/uL (0-0.7); Eosinophils % (A) 3 %; HCT 44.1 % (34.0-46.0); HGB 14.1 gm/dL (11.4-16.0); Lymphocytes # (A) 2.4 k/uL (1.0-4.8); Lymphocytes % (A) 27 %; MCH 26.8 pg (25.0-35.0); MCHC 31.9 g/dL (31.0-37.0); Mean Platelet Volume 7.6; Monocytes # (A) 0.5 k/uL (0-1.0); Monocytes % (A) 5 %; Neutrophils # (A) 5.8 k/uL (1.3-7.7); Neutrophils % (A) 64 %; Platelet Count 284 k/uL (150-450); RBC 5.25 m/uL (3.80-5.40); RDW 13.2 % (11.5-15.5); WBC 9.2 k/uL (3.8-10.6)
--- NOTE | 2021-06-20 16:59 | XR ---
EXAMINATION TYPE: XR chest 2V DATE OF EXAM: 06/20/2021 COMPARISON: NONE HISTORY: Chest pain TECHNIQUE: 2 views FINDINGS: Heart and mediastinum are normal. Lungs are clear. Diaphragm is normal. Bony thorax appears normal. IMPRESSION: Normal chest
[2021-06-20 17:13] LABS: ALT 22 U/L (4-34); AST 29 U/L (14-36); African American GFR (CKD) >90 (>60 ml/min/1.73 sqM); Albumin 3.9 g/dL (3.5-5.0); Alkaline Phosphatase 92 U/L (38-126); Anion Gap 9 mmol/L; Blood Urea Nitrogen 13 mg/dL (7-17); Calcium 9.1 mg/dL (8.4-10.2); Carbon Dioxide 22 mmol/L (22-30); Chloride 105 mmol/L (98-107); Glucose 89 mg/dL (74-99); Magnesium 1.6 mg/dL (1.6-2.3); Non-African American GFR(CKD) >90 (>60 ml/min/1.73 sqM); Sodium 136 mmol/L (137-145); Total Bilirubin 0.4 mg/dL (0.2-1.3); Total Protein 7.3 g/dL (6.3-8.2)
[2021-06-20 17:15] LABS: Appearance,Urine Cloudy (Clear); Bilirubin,Urine Negative (Negative); Blood,Urine Negative (Negative); Color,Urine Light Yellow; Glucose,Urine (UA) Negative (Negative); Ketones,Urine Negative (Negative); Leukocyte Esterase,Urine Moderate (Negative); Mucus,Urine Rare /hpf; Nitrite,Urine Negative (Negative); PH, Urine 6.5 (5.0-8.0); Protein,Urine Negative (Negative); RBC,Urine 1 /hpf (0-5); Specific Gravity,Urine 1.011 (1.001-1.035); Squamous Epithelial Cell,Urine 4 /hpf (0-4); Urobilinogen,Urine <2.0 mg/dL (<2.0); WBC,Urine 3 /hpf (0-5)
[2021-06-20 17:34] LABS: INR 0.9 (<1.2); Prothrombin Time 10.4 sec (9.0-12.0)
--- NOTE | 2021-06-20 18:19 | CT ---
EXAMINATION TYPE: CT chest angio for PE DATE OF EXAM: 06/20/2021 COMPARISON: None HISTORY: Chest pain x5 days. CT DLP: 437.6 mGycm Automated exposure control for dose reduction was used. CONTRAST: Performed with IV Contrast, patient injected with 78ml mL of Isovue 370. There are Three-D postprocessed images. The lungs are clear of infiltrate. No pleural effusion. Heart size is normal. There is no pericardial effusion. There is normal contrast opacification of the pulmonary arteries. There are no filling defects. There are no hilar masses. Thoracic aorta is intact. No aneurysm or dissection. Bony thorax is intact. The thoracic spine is intact. No compression fracture. There is 3 cm rounded soft tissue mass in the medial right breast. IMPRESSION: No evidence of pulmonary embolism. Right breast mass. This could be fibroadenoma in this relatively young patient.
[2021-06-20 19:02] VITALS: BP 113/70; PULSE 89
[2021-06-20] MEDS ORDERED: IBUPROFEN 600 MG STARTER PACK 4 TAB BTL PO STA (19:38)
== END 2021-06-20 20:09 | disposition home or self-care (01) ==
LOC: EC 15:50
DX: R07.89 Other chest pain (principal); J45.909 Unspecified asthma, uncomplicated
CPT/HCPCS: 36415; 93005; 85379; 80053; 83735; 84484; 85025; 85610; 85730; 81001; 81025; 71046; 71275; 99285; Q9967

== ENCOUNTER → 2021-07-27 | Outpatient (CLI) | payer OTHER ==
--- NOTE | 2021-07-28 10:24 | USB ---
Reason for exam: clinical finding. Physical Findings: A clinical breast exam by your physician is recommended on an annual basis and results should be correlated with mammographic findings. US Breast RT Right complete breast ultrasound includes all four quadrants, the retroareolar region and axilla. Finding demonstrates a 3.9 x 1.7 x 2.4cm oval, solid, hypoechoic lesion at 1 o'clock, 7cm from nipple, in combo suspect two adjacent solid lesions. Results were given to the patient verbally at the time of the exam. ASSESSMENT: Suspicious, BI-RAD 4A- Low suspicion. RECOMMENDATION: Surgical consultation and ultrasound core biopsy of the right breast. Biopsy for tissue sampling can be performed is desired. Favor fibroadenomas. Called Dr. Puentes's office with mammographic findings and has scheduled an appointment for the patient for 08/02/21 at 1:[address] Llamas. PRELIMINARY REPORT CALLED AND FAXED TO DR. LLAMAS ON 07/28/21. [facility]Henry
== END | disposition home or self-care (01) ==
LOC: RADUSWWP 14:09
PROVIDERS: ATTEND Obstetrics & Gynecology Obstetrics
DX: N63.0 Unspecified lump in unspecified breast (principal)

== ENCOUNTER → 2021-08-11 | Day surgery (SDC) | payer OTHER ==
--- NOTE | 2021-08-11 17:35 | USB ---
Prior Study Comparison: 07/27/2021 Right Diagnostic Ultrasound, [facility]. Pathology Description: Location: 1 o'clock, upper inner quadrant, middle, central. Marker Left Behind. Needle Type: Mammotone Cores: 7 Skin Nicks: 1 Gauge: 14 EXAMINATION TYPE: US biopsy breast VAD RT DATE OF EXAM: 08/11/2021 CLINICAL HISTORY: lump/mass N63.0. TECHNIQUE: Ultrasound guided vaccuum assisted core biopsy of right breast. COMPARISON: 07/27/2021 FINDINGS: The ultrasound guided core biopsy procedure was explained to the patient. The risks, benefits, alternatives were discussed. An informed consent was then obtained. Timeout was performed. The patient was placed in supine positioning for imaging and for the procedure. The overlying skin was prepped with betadine and sterilely draped in usual sterile fashion. Lidocaine 1% was used as anesthetic into the skin and deeper breast tissue up to area of concern in the breast. A small skin angélica was made with surgical scalpel. Under ultrasound guidance, a 12-gauge vacuum assisted biopsy device was used to obtain 7 core samples. A biopsy clip was left in lesion. Hydromark was placed. Good hemostasis was obtained with direct pressure. Discharge instructions were discussed with the patient. The patient will follow up with the referring physician for results. Postprocedure mammogram: Given the patient's age, large residual ultrasound findings remain, mammogram was not performed this time. The patient tolerated the procedure well without any immediate complication. The patient was discharged to home in stable condition. IMPRESSION: 1. Successful ultrasound guided biopsy right breast. Pathology Results: Benign RIGHT BREAST, 1:00 POSITION, CORE BIOPSY: Benign fibroadenoma. Recommendation Follow up ultrasound of the right breast in 6 months. SYK
== END ==
LOC: RADUSWWP 08:09
PROVIDERS: ATTEND Surgery
DX: D24.1 Benign neoplasm of right breast (principal)
CPT/HCPCS: 19083; 88305; A4648

== ENCOUNTER → 2022-02-03 | Outpatient (CLI) | payer MEDICAID, OTHER ==
--- NOTE | 2022-02-03 11:08 | USB ---
Reason for Exam: Follow-up at short interval from prior study. Patient History: 08/11/2021, Benign US biopsy breast VAD RT on the right side. Technique: Method: Targeted. Findings: The upper inner quadrant of the right breast, the axilla of the right breast and the retroareolar of the right breast were scanned. There is a lobular slightly hypoechoic circumscribed area within the right breast 1:00 position 7 cm the nipple. This measures 3.3 x 1.6 x 2.5 cm. The biopsy clip appears to be visualized. Previous measurement 3.9 x 1.7 x 2.4 cm. Overall Assessment: Benign, BI-RAD 2 Management: Diagnostic Breast Ultrasound of the right breast in 1 year. A clinical breast exam by your physician is recommended on an annual basis and results should be correlated with mammographic findings. This exam should not preclude additional follow-up of suspicious palpable abnormalities. ??Results were given to the patient verbally at the time of exam. Electronically signed and approved by: Vineet Chiang D.O. Radiologis
== END | disposition home or self-care (01) ==
LOC: RADUSWWP 10:34
PROVIDERS: ATTEND Obstetrics & Gynecology Obstetrics
DX: N63.10 Unspecified lump in the right breast, unspecified quadrant (principal)

== ENCOUNTER → 2024-02-16 | Outpatient (CLI) | payer BC ==
--- NOTE | 2024-02-16 14:39 | USB ---
Reason for Exam: Clinical finding. Patient History: 08/11/2021, Benign US biopsy breast VAD RT on the right side. Technique: Method: Targeted. Findings: The area of palpable concern of the right breast, the axilla of the right breast and the retroareolar of the right breast were scanned. Technique utilized:US breast limited RT Image; Ultrasound imaging of: Area of concern, retroareolar region and axilla. Right breast: Palpable abnormality at 1:00 7 cm nipple measuring 2.5 x 3.0 x 1.6 cm, previously 2.5 x 3.3 x 1.6. Overall Assessment: Benign, BI-RAD 2 Management: Screening Mammogram of both breasts at age 41. Clinical management for patient's perceived enlargement of right breast lesion. The measurements are nearly identical and/or fractionally smaller compared to prior. A clinical breast exam by your physician is recommended on an annual basis and results should be correlated with mammographic findings. This exam should not preclude additional follow-up of suspicious palpable abnormalities. Results were given to the patient verbally at the time of exam. [facility], , 02/16/2024 2:35 PM. Electronically signed and approved by: Florin Aguilera M.D. Radiologis
== END | disposition home or self-care (01) ==
LOC: RADUSWWP 13:56
PROVIDERS: ATTEND Family Medicine
DX: N63.10 Unspecified lump in the right breast, unspecified quadrant (principal)

== ENCOUNTER → 2024-10-05 | Outpatient (CLI) | payer BC ==
[2024-10-06 01:09] LABS: T4, Free (Free Thyroxine) 1.07 ng/dL (0.80-1.80)
[2024-10-06 09:15] LABS: Basophils # (A) 0.07 X 10*3/uL (0.00-0.10); Basophils % (A) 0.9 %; Eosinophils # (A) 0.13 X 10*3/uL (0.04-0.35); Eosinophils % (A) 1.7 %; HCT 43.7 % (37.2-46.3); HGB 13.8 g/dL (12.0-15.0); Immature Grans, Automated 0.10 %; Lymphocytes # (A) 1.80 X 10*3/uL (0.90-5.00); Lymphocytes % (A) 23.6 %; MCH 26.0 pg (27.0-32.0); MCHC 31.6 g/dL (32.0-37.0); MCV 82.3 FL (80.0-97.0); Monocytes # (A) 0.52 X 10*3/uL (0.20-1.00); Monocytes % (A) 6.8 %; NRBC Per 100 WBC 0 X 10*3/uL (0.00-0.01); Neutrophils # (A) 5.10 X 10*3/uL (1.80-7.70); Neutrophils % (A) 66.9 %; Platelet Count 337 X 10*3/uL (140-440); RBC 5.31 X 10*6/uL (4.10-5.20); RDW 13.2 % (11.5-14.5); WBC 7.63 X 10*3/uL (4.50-10.00)
[2024-10-06 20:40] LABS: Urine Alcohol Negative (Negative); Urine Barbiturate Negative (Negative)
== END | disposition home or self-care (01) ==
LOC: LABWHC1 10:28
PROVIDERS: ATTEND Registered Nurse
DX: Z51.81 Encounter for therapeutic drug level monitoring (principal); Z79.899 Other long term (current) drug therapy
CPT/HCPCS: 36415; 80306; 84439; 84443; 85025